=== PATIENT | female | born 1995 | race Caucasian/White ===

== ENCOUNTER 2018-04-08 16:47 | Inpatient (IN) | payer OTHER ==
[2018-04-08] MEDS ORDERED: LACTATED RINGER'S 1,000 ML IV (17:32)
[2018-04-08] MEDS ORDERED: CARBOPROST 250 MCG INJ IM (18:00)
[2018-04-08] MEDS ORDERED: METHYLERGONOVINE 0.2 MG INJ IM (18:00)
[2018-04-08] MEDS ORDERED: OXYTOCIN 30 UNITS/LR 500 ML IV (18:00)
[2018-04-08] MEDS ORDERED: CEFAZOLIN 2 GM/50 ML (PMX) 50 ML IV (18:00)
[2018-04-08] MEDS ORDERED: MISOPROSTOL 200 MCG TAB PR (18:00)
[2018-04-08 18:01] LABS: ADD MAN DIFF? NO
[2018-04-08 18:07] LABS: WHITE BLOOD COUNT 6.4 10^3/ul (4.8-10.8)
[2018-04-08 18:07] LABS: BASOPHILS % 0.5 % (0.0-2.0); EOSINOPHILS % 0.6 % (0.0-7.0); HEMATOCRIT 33.5 % (37.0-47.0); HEMOGLOBIN 10.5 g/dl (12.0-16.0); LYMPHOCYTES # 2.2 10^3/ul (0.8-2.9); LYMPHOCYTES % 33.4 % (15.0-51.0); MEAN CORPUSCULAR HEMOGLOBIN 24.4 pg (29.0-33.0); MEAN CORPUSCULAR HGB CONC 31.3 g/dl (32.0-37.0); MEAN CORPUSCULAR VOLUME 77.9 fl (82.0-101.0); MEAN PLATELET VOLUME 11.3 fl (7.4-10.4); MONOCYTE # 0.2 10^3/ul (0.3-0.9); MONOCYTES % 3.6 % (0.0-11.0); NEUTROPHILS % 61.4 % (39.0-77.0); NUCLEATED RED BLOOD CELLS% 0.5 /100WBC (0.0-0.0); PLATELET COUNT 211 10^3/UL (140-415); RED CELL DISTRIBUTION WIDTH 17.8 % (11.5-14.5)
[2018-04-08 18:22] LABS: INR 0.86; PROTIME 11.8 Sec (11.9-14.9); PT RATIO 0.9
[2018-04-08 18:23] LABS: PARTIAL THROMBOPLASTIN TIME 28.8 Sec (25.0-35.0)
[2018-04-08] MEDS ORDERED: METOCLOPRAMIDE 10 MG INJ (18:37)
[2018-04-08] MEDS ORDERED: PHENYLephrine (100 MCG/ML) 5ML SYG (18:37)
[2018-04-08] MEDS ORDERED: FENTAnyl 50 MCG/ML VIAL (18:37)
[2018-04-08] MEDS ORDERED: morphine SULFATE/PF (10 MG/10 ML) INJ (18:37)
[2018-04-08] MEDS ORDERED: OXYTOCIN 10 UNIT INJ (18:37)
[2018-04-08] MEDS ORDERED: BUPIVACAINE 0.75%/DEXT (SPINAL) 2 ML INJ (18:42)
[2018-04-08] MEDS ORDERED: CITRIC ACID/SODIUM CITRATE 15 ML CUP (18:42)
[2018-04-08] MEDS: OXYTOCIN 30 UNITS/LR 500 ML IV (20:16)
[2018-04-08] MEDS ORDERED: DIPHENHYDRAMINE 50 MG INJ IV (20:30)
[2018-04-08] MEDS ORDERED: NALBUPHINE HCL (10 MG/1 ML) INJ IV (20:30)
[2018-04-08] MEDS ORDERED: morphine 2 MG INJ IV (20:30)
[2018-04-08] MEDS ORDERED: NALOXONE (0.4 MG/ML) INJ IV (20:30)
[2018-04-08] MEDS ORDERED: ONDANSETRON 4 MG INJ IV (20:30)
[2018-04-08] MEDS ORDERED: TRIMETHOBENZAMIDE 100 MG/ML VIAL IM (20:30)
[2018-04-08] MEDS: KETOROLAC 30 MG INJ IV (21:15)
[2018-04-08 23:11] LABS: ADD MAN DIFF? NO
[2018-04-08 23:12] LABS: WHITE BLOOD COUNT 7.7 10^3/ul (4.8-10.8)
[2018-04-08 23:12] LABS: BASOPHILS % 0.3 % (0.0-2.0); EOSINOPHILS % 0.3 % (0.0-7.0); HEMATOCRIT 32.2 % (37.0-47.0); HEMOGLOBIN 9.9 g/dl (12.0-16.0); LYMPHOCYTES % 26.2 % (15.0-51.0); MEAN CORPUSCULAR HEMOGLOBIN 23.9 pg (29.0-33.0); MEAN CORPUSCULAR HGB CONC 30.7 g/dl (32.0-37.0); MEAN CORPUSCULAR VOLUME 77.6 fl (82.0-101.0); MEAN PLATELET VOLUME 11.1 fl (7.4-10.4); MONOCYTE # 0.2 10^3/ul (0.3-0.9); MONOCYTES % 2.5 % (0.0-11.0); NEUTROPHIL # 5.4 10^3/ul (1.6-7.5); NEUTROPHILS % 69.9 % (39.0-77.0); PLATELET COUNT 156 10^3/UL (140-415); RED BLOOD COUNT 4.15 10^6/ul (4.20-5.40); RED CELL DISTRIBUTION WIDTH 17.5 % (11.5-14.5)
[2018-04-08 23:18] LABS: ADD UMIC NO; UR ASCORBIC ACID NEGATIVE (NEGATIVE); UR BILIRUBIN (Dip) NEGATIVE (NEGATIVE); UR BLOOD (Dip) NEGATIVE (NEGATIVE); UR CLARITY CLEAR (CLEAR); UR COLOR STRAW (YELLOW); UR GLUCOSE (Dip) NEGATIVE (NEGATIVE); UR KETONES (Dip) TRACE mg/dL (NEGATIVE); UR LEUKOCYTE ESTERASE (Dip) NEGATIVE Leu/ul (NEGATIVE); UR NITRITE (Dip) NEGATIVE (NEGATIVE); UR SPECIFIC GRAVITY (Dip) 1.004 (1.003-1.030); UR TOTAL PROTEIN (Dip) NEGATIVE (NEGATIVE); UR UROBILINOGEN (Dip) NEGATIVE (NEGATIVE)
[2018-04-08 23:30] LABS: ALANINE AMINOTRANSFERASE 22 IU/L (13-69); ALBUMIN 2.7 g/dl (3.3-4.9); ALBUMIN/GLOBULIN RATIO 0.81; ALKALINE PHOSPHATASE 293 IU/L (42-121); ANION GAP 10 (8-16); ASPARTATE AMINO TRANSFERASE 42 IU/L (15-46); BILIRUBIN,INDIRECT 0.4 mg/dl (0-1.1); BILIRUBIN,TOTAL 0.4 mg/dl (0.2-1.3); BLOOD UREA NITROGEN 6 mg/dl (7-20); CARBON DIOXIDE 23 mmol/L (21-31); CHLORIDE 109 mmol/L (97-110); CREATININE 0.77 mg/dl (0.44-1.00); GLUCOSE 81 mg/dl (70-220); POTASSIUM 3.9 mmol/L (3.5-5.1); SODIUM 138 mmol/L (135-144); URIC ACID 7.1 mg/dl (3.1-7.9)
[2018-04-09] LABS: HEPATITIS B SURFACE ANTIGEN NEGATIVE (NEGATIVE)
[2018-04-09] MEDS: OXYTOCIN 30 UNITS/LR 500 ML IV ×4 (01:21→06:58)
[2018-04-09] MEDS ORDERED: OXYTOCIN 30 UNITS/LR 500 ML IV ×3 (02:58→03:00)
[2018-04-09] MEDS ORDERED: CARBOPROST 250 MCG INJ IM ×2 (03:00)
[2018-04-09] MEDS ORDERED: METHYLERGONOVINE 0.2 MG INJ IM ×2 (03:00)
[2018-04-09] MEDS ORDERED: MISOPROSTOL 200 MCG TAB PR ×2 (03:00)
[2018-04-09] MEDS ORDERED: HYDROCODONE/APAP (5/325) TAB PO ×2 (03:00)
[2018-04-09] MEDS ORDERED: CEFAZOLIN 1 GM/50 ML (PMX) 50 ML IVPB (03:00)
[2018-04-09] MEDS: CEFAZOLIN 1 GM/50 ML (PMX) 50 ML IVPB (03:38)
[2018-04-09] MEDS: KETOROLAC 30 MG INJ IV ×2 (06:18→16:50)
[2018-04-09] MEDS: SENNA/DOCUSATE NA (8.6MG/50MG) TAB PO ×2 (08:58→22:53)
[2018-04-09 09:09] LABS: ADD MAN DIFF? NO
[2018-04-09 09:12] LABS: WHITE BLOOD COUNT 7.6 10^3/ul (4.8-10.8)
[2018-04-09 09:12] LABS: BASOPHILS % 0.4 % (0.0-2.0); EOSINOPHILS % 0.3 % (0.0-7.0); HEMATOCRIT 29.4 % (37.0-47.0); LYMPHOCYTES # 2.1 10^3/ul (0.8-2.9); LYMPHOCYTES % 27.8 % (15.0-51.0); MEAN CORPUSCULAR HEMOGLOBIN 23.7 pg (29.0-33.0); MEAN CORPUSCULAR HGB CONC 30.6 g/dl (32.0-37.0); MEAN CORPUSCULAR VOLUME 77.6 fl (82.0-101.0); MEAN PLATELET VOLUME 11.6 fl (7.4-10.4); MONOCYTE # 0.3 10^3/ul (0.3-0.9); MONOCYTES % 4.2 % (0.0-11.0); NEUTROPHIL # 5.1 10^3/ul (1.6-7.5); NEUTROPHILS % 66.8 % (39.0-77.0); PLATELET COUNT 173 10^3/UL (140-415); RED BLOOD COUNT 3.79 10^6/ul (4.20-5.40); RED CELL DISTRIBUTION WIDTH 17.8 % (11.5-14.5)
[2018-04-09] MEDS: morphine 2 MG INJ IV (11:26)
[2018-04-09 16:10] LABS: RAPID PLASMA REAGIN NONREACTIVE (NR)
[2018-04-09] MEDS: LANOLIN 7 GM TUBE TOP (22:54)
[2018-04-09] MEDS: OXYCODONE/ACETAMINOPHEN (5/325) TAB PO (22:55)
[2018-04-10] MEDS: IBUPROFEN 600 MG TAB PO ×4 (00:27→17:44)
[2018-04-10] MEDS: OXYCODONE/ACETAMINOPHEN (5/325) TAB PO ×3 (02:05→17:55)
[2018-04-10] MEDS: SENNA/DOCUSATE NA (8.6MG/50MG) TAB PO ×2 (09:31→20:39)
[2018-04-11] MEDS: IBUPROFEN 600 MG TAB PO ×3 (06:00→12:13)
[2018-04-11] MEDS: OXYCODONE/ACETAMINOPHEN (5/325) TAB PO ×2 (06:00→15:13)
[2018-04-11] MEDS: DIPHTH/TET/ACEL PERTUSS (ADULT) 0.5 ML VIAL IM* (09:00)
[2018-04-11] MEDS: MEASLES,MUMPS,RUBELLA VACCINE INJ SC* (09:00)
[2018-04-11] MEDS: SENNA/DOCUSATE NA (8.6MG/50MG) TAB PO (10:06)
[2018-04-11] MEDS: NA PHOSPHATE/BIPHOS 133 ML ENEMA PR ×2 (12:30→12:47)
== END 2018-04-11 16:22 | disposition home or self-care (01) | DRG 765 ==
LOC: PP1 04-09 01:55 → L-D 16:47
PROVIDERS: Obstetrics & Gynecology
PROC: 10D00Z1 Extraction of Products of Conception, Low, Open Approach (ICD-10-PCS; principal; 2018-04-08 19:00)
PROC: 0UB70ZZ Excision of Bilateral Fallopian Tubes, Open Approach (ICD-10-PCS; 2018-04-08 19:00)
PROC: 4A1HXCZ Monitoring of Products of Conception, Cardiac Rate, External Approach (ICD-10-PCS; 2018-04-08 19:00)
DX: O32.1XX2 Maternal care for breech presentation, fetus 2 (principal); O30.043 Twin pregnancy, dichorionic/diamniotic, third trimester; Z37.2 Twins, both liveborn; Z3A.37 37 weeks gestation of pregnancy; Z30.2 Encounter for sterilization
CPT/HCPCS: 80053; 81003; 84560; 85025; 85610; 85730; 86592; 86850; 86900; 86901; 87340; 88302; 88307; 99464